=== PATIENT | female | born 1950 | race Caucasian/White ===

== ENCOUNTER → 2017-08-08 | Outpatient (CLI) | payer MEDICARE, OTHER | LOC: COL.RAD 10:16 | DX: E04.9 Nontoxic goiter, unspecified (principal) ==

== ENCOUNTER 2019-09-29 20:11 | Emergency (ER) | payer MEDICARE, OTHER ==
[~2019-09-29] VITALS: Ht 160 cm; Wt 76.4 kg
[2019-09-29 20:23] VITALS: TEMP 98.3
[2019-09-29] MEDS ORDERED: FOSAMAX40 MG PO (22:16)
[2019-09-29] MEDS ORDERED: LOTREL 5 MG-401 CAP PO (22:17)
[2019-09-29] MEDS ORDERED: TRILEPTAL600 MG PO (22:17)
[2019-09-29] MEDS ORDERED: CEPHALEXIN500 M1 PO (23:30)
[2019-09-29 23:39] VITALS: BP 173/76; PULSE 85
== END 2019-09-29 23:42 | disposition home or self-care (01) ==
LOC: COL.ER 20:11
DX: S61.412A Laceration without foreign body of left hand, initial encounter (principal); I10 Essential (primary) hypertension; W54.1XXA Struck by dog, initial encounter; Y92.812 Truck as the place of occurrence of the external cause

== ENCOUNTER → 2019-10-05 | Outpatient (CLI) | payer MEDICARE, OTHER ==
[~2019-10-05] MED LIST: CEPHALEXIN500 M1 PO; FOSAMAX40 MG PO; LOTREL 5 MG-401 CAP PO; TRILEPTAL600 MG PO
== END ==
LOC: MC.RAD 14:36
DX: Z12.31 Encounter for screening mammogram for malignant neoplasm of breast (principal)

== ENCOUNTER → 2019-10-08 | Outpatient (CLI) | payer MEDICARE, OTHER ==
[2019-10-08 11:37] VITALS: BP 159/83; PULSE 84; TEMP 97.7
== END ==
LOC: COL.ER 10:55
DX: S61.412D Laceration without foreign body of left hand, subsequent encounter (principal); X58.XXXD Exposure to other specified factors, subsequent encounter

== ENCOUNTER → 2021-08-08 | Outpatient (CLI) | payer MEDICARE, OTHER | LOC: MC.RAD 12:54 | DX: N63.10 Unspecified lump in the right breast, unspecified quadrant (principal) ==

== ENCOUNTER → 2021-08-22 | Outpatient (CLI) | payer MEDICARE, OTHER | LOC: MC.RAD 10:00 | DX: C50.912 Malignant neoplasm of unspecified site of left female breast (principal); N64.89 Other specified disorders of breast ==

== ENCOUNTER 2021-10-10 07:12 | Inpatient (IN) | payer MEDICARE, OTHER ==
[2021-10-10] VITALS (10 sets, daily range): BP systolic 97–184; BP diastolic 60–90; PULSE 79–92; TEMP 97.8–98.6
[~2021-10-10] VITALS: Ht 160 cm; Wt 78.5 kg
[2021-10-10] MEDS ORDERED: LOTREL 5/20 CAP1 CAP PO (09:09)
[2021-10-10] MEDS ORDERED: TRILEPTAL 150M150 MG PO (09:11)
[2021-10-10] MEDS ORDERED: CALCIUM 600 MG1 EAC2 PO (09:13)
[2021-10-10] MEDS ORDERED: ASPIRIN 81M81 MG/TA2 PO (09:26)
[2021-10-10] MEDS ORDERED: REFRESH TEARS 330 ML OP (09:27)
[2021-10-10] MEDS ORDERED: PATADAY5 ML OP (09:28)
--- NOTE | 2021-10-10 09:50 | NUR ---
Patient returns to radiology per wheelchair.
--- NOTE | 2021-10-10 18:35 | NUR ---
Up to bathroom with standby assist x 2. careful, steady gait. pt reports "my knee don't work very well. I might need new knees at some point. " Voids large amount. Back to bed without difficulty. loving and supportive.
--- NOTE | 2021-10-10 19:30 | NUR ---
pt reports "it hurts pretty bad" Discuss additional pain medication options and anti-emetics. Zofran IV given. Pt tolerating popsickle well. Laurie 1 tab given.
--- NOTE | 2021-10-10 20:25 | NUR ---
Dr Wilhelm into room. Pt nauseated, states "I don't feel very well" ALY drain on L side with bright red blood, bulb not compressed. Dr Wilhelm palpates L chest above dressing, area swollen extremely tender to touch, loosens dressing, no bleeding at incision. Checks R side of chest, no drainge noted, no swelling above inscison. Pt sort of breath, anxious, drowsy. 134/116, HR 127. IV fluids restarted.
--- NOTE | 2021-10-10 21:15 | NUR ---
OR nurse into room for tranfer to OR. pt requests up to bathroom "stating I feel pretty strong, I can do it" Up to bathroom with standby assist X 2, careful slow gait. Voids large amount. Upon standing pt states "i feel pretty loopy" Assisted back onto toilet. Pt stating "help me, I don't feel good" Pt gaspy, then snoring. Pivot transfer to wheelcahir with gait belt and assist of 3, minimal asssitance form pt. Pt starts talking once in wheelchair. Gaitbelt pivot tranfers to bed with RN assist x 2, pt able to assist. BP 95/52, pulse 87, Spo2 94%, O2 reapplied. Pt oriented x3. 2140 off unit via bed to OR. SOCIAL MEDIA MARKETING ANALYST and shuttle operator at bedside.
--- NOTE | 2021-10-10 23:35 | NUR ---
2335 FROM OR PER BED. SLEEPY BUT AROUSES EASILY. IV INFUSES. MC PATENT WITH YELLOW URINE. ALY DRAINS X2 WITH 10CC DRAINED FROM RIGHT SIDE INC AND 30CC DRAINED FROM LEFT SIDE INC.
[2021-10-11] VITALS (11 sets, daily range): BP systolic 93–124; BP diastolic 46–78; PULSE 83–95; TEMP 97.2–98.6
--- NOTE | 2021-10-11 00:35 | NUR ---
0035-PT DENIES NEEDS AND DRESSING CDI WITH MINIMAL DRAINAGE NOTED IN ALY DRAINSX2.
--- NOTE | 2021-10-11 01:05 | NUR ---
0105-PT SLEEPING AND AROUSES TO NAME. DENIES NEEDS AND FELL BACK TO SLEEP AFTER VS TAKEN.
--- NOTE | 2021-10-11 01:35 | NUR ---
0135-PT SLEEPING AND AROUSED TO NAME. DENIES NEEDS AT THIS TIME. ALY DRAINS NOTED TO HAVE MINIMAL DRAINAGE BILAT AT THIS TIME. DRESSING CDI.
--- NOTE | 2021-10-11 02:35 | NUR ---
0235-VSS AND PT SLEEPING BUT AWAKENS WHEN BP TAKEN. PT DENIES NEEDS AT THIS TIME. 35ML BLOOD REMOVED FROM L ALY DRAIN AND MINIMAL DRAINAGE NOTED IN R ALY DRAIN. SCDS ON AT THIS TIME AND EXPLAINED TO PT.
--- NOTE | 2021-10-11 04:45 | NUR ---
0445-VSS AND POSITION CHANGED TO R SIDE LYING. PT ASSISTED WITH POSITION CHANGE AND SCDS ON . PT INSTRUCTED TO COUGH AND DEEP BREATH AT THIS TIME. ALY DRAIN ON L SIDE EMPTIED OF 15ML BLOOD AND ALY DRAIN ON R SIDE EMPTIED OF 10ML BLOOD. O2 PER NC DISCONTINUED AND O2 SATS 96% AND GREATER ON RM AIR. PT DENIES NEEDS AT THIS TIME.
--- NOTE | 2021-10-11 06:00 | NUR ---
0600-PT AWAKE AND REPOSITIONED FOR COMFORT. PT DENIES NEEDS AT THIS TIME.
[2021-10-11 07:21] LABS: HEMATOCRIT 28.5 % (37.0-47.0); HEMOGLOBIN 9.3 g/dl (12.5-16.0)
--- NOTE | 2021-10-11 08:00 | NUR ---
10ml obtained from right ALY Drain 25ml obtained from left ALY Drain
--- NOTE | 2021-10-11 11:54 | NUR ---
1200 LEFT ALY DRAN 50 CC, RIGHT ALY DRAIN 10 CC
--- NOTE | 2021-10-11 11:55 | NUR ---
1150 PT AT BEDSIDE FOR THERAPY, PATIENT TOLERATES WELL
--- NOTE | 2021-10-11 14:50 | NUR ---
Patient ambulating with physical therapy at this time. 1500: Luevano catheter removed at this time and patient tolerates well.
--- NOTE | 2021-10-11 15:40 | NUR ---
40ml obtained from left ALY drain 25ml obtained from right ALY drain
--- NOTE | 2021-10-11 19:35 | NUR ---
1934-AMBULATED TO BR WITH ASSIST X1 AND USING CANE. PT VOIDED 200ML YELLOW URINE AND THEN ASSISTED BACK TO BED. DENIES OTHER NEEDS AT THIS TIME
--- NOTE | 2021-10-11 22:00 | NUR ---
45MLS Obtained from left ALY drain 25Mls obtained from right ALY drain.
[2021-10-12 00:30] VITALS: BP 120/56; PULSE 89; TEMP 98.2
--- NOTE | 2021-10-12 00:30 | NUR ---
25MLS Obtained from left ALY drain 5mls obtained from right ALY drain.
[2021-10-12 05:30] VITALS: BP 123/61; PULSE 84; TEMP 98.2
--- NOTE | 2021-10-12 05:30 | NUR ---
20MLS obtained out of left ALY drain 10MLS obtained out of right ALY drain.
[2021-10-12 08:30] VITALS: BP 130/65; PULSE 84; TEMP 97.7
[2021-10-12 09:55] LABS: HEMATOCRIT 29.6 % (37.0-47.0); HEMOGLOBIN 9.4 g/dl (12.5-16.0)
--- NOTE | 2021-10-12 10:46 | NUR ---
0830 ALY DRAINS EMPTIED RT SIDE 10ML AND LT SIDE 25
[2021-10-12] MEDS ORDERED: NORCO 325 MG-51 TAB PO (12:23)
--- NOTE | 2021-10-12 13:24 | NUR ---
Commodity Loan Clerk met with patient to discuss discharge planning. Patient lives in [place] with her , Maximus and sees Dr. Georgette Willson for primary care. Patient obtains medications from [facility] or [facility] with no difficulties. Patient does not use any DME and is normally independent with ADLS. Patient states she helps care for her three year old twin grandchildren. SW discussed PT recommendation for Home Health services and patient is agreeable to this. SW presented Medicare.gov list of agencies that serve [place] and patient selected [facility]. JEANNETTE contacted Anh at [facility] and faxed referral and orders. Anh advised they can accept patient and will see her tomorrow. Discharge Plan: Home with [facility] today
--- NOTE | 2021-10-12 15:32 | NUR ---
1400 REVIEWED DISCHARGE INSTRUCTIONS WITH PATIENT AND . DENIES NEEDS OR QUESTIONS.
== END 2021-10-12 14:30 | disposition home or self-care (01) | DRG 580 ==
LOC: SDCO 07:12 → OB 18:15 → SDCO 22:42 → OB 22:43
PROVIDERS: ADMIT Surgery
PROC: 0HCU0ZZ Extirpation of Matter from Left Breast, Open Approach (ICD-10-PCS; 2021-10-10)
PROC: 0HRV07Z Replacement of Bilateral Breast with Autologous Tissue Substitute, Open Approach (ICD-10-PCS; 2021-10-10)
PROC: 0HBV0ZZ Excision of Bilateral Breast, Open Approach (ICD-10-PCS; principal; 2021-10-10 12:00)
PROC: 07B60ZZ Excision of Left Axillary Lymphatic, Open Approach (ICD-10-PCS; 2021-10-10 12:00)
PROC: 07B50ZZ Excision of Right Axillary Lymphatic, Open Approach (ICD-10-PCS; 2021-10-10 12:00)
DX: C50.111 Malignant neoplasm of central portion of right female breast (principal); L76.32 Postprocedural hematoma of skin and subcutaneous tissue following other procedure; L76.22 Postprocedural hemorrhage of skin and subcutaneous tissue following other procedure; D62 Acute posthemorrhagic anemia; I10 Essential (primary) hypertension; M81.0 Age-related osteoporosis without current pathological fracture; Y83.8 Other surgical procedures as the cause of abnormal reaction of the patient, or of later complication, without mention of misadventure at the time of the procedure
CPT/HCPCS: OP; A4314; A9284; A9520; C1788; J0690; J1100; J1885; J2250; J2370; J2405; J2704; J2795; J3010; J7120